=== PATIENT | female | born 1970 | race Caucasian/White ===

== ENCOUNTER 2019-02-17 14:33 | Outpatient (CLI) | payer BC ==
--- NOTE | 2019-03-03 15:29 | MMO ---
Bilateral MAMMO Bilat Screen [facility]. CLINICAL HISTORY: Patient is 48 years old and is seen for screening. The patient has the following family history of breast cancer: mother. The patient has a history of cervical cancer at age 27. VIEWS: The views performed were: bilateral craniocaudal with tomosynthesis and bilateral mediolateral oblique with tomosynthesis. FILMS COMPARED: The present examination has been compared to prior imaging studies performed at [facility] on 12/22/2015, 01/27/2017 and 02/09/2018. MAMMOGRAM FINDINGS: There are scattered fibroglandular densities. There is a new mass measuring 8 millimeters with circumscribed margins seen in the outer region of the right breast. In the left breast, there are no suspicious masses, calcifications or areas of architectural distortion. IMPRESSION: NEW MASS IN THE RIGHT BREAST REQUIRES ADDITIONAL EVALUATION. AN ULTRASOUND EXAM IS RECOMMENDED. THE RESULTS OF THIS EXAM WERE SENT TO THE PATIENT. ACR BI-RADS Category 0 - Incomplete: Need additional imaging evaluation. [facility] will notify the patient of the need for additional imaging services. MAMMOGRAPHY NOTE: 1. A negative mammogram report should not delay a biopsy if a dominant of clinically suspicious mass is present. 2. Approximately 10% to 15% of breast cancers are not detected by mammography. 3. Adenosis and dense breasts may obscure an underlying neoplasm. Reported by: ARUNA CAMPBELL MD Electonically Signed: [id number]
== END 2019-02-17 14:34 | disposition home or self-care (01) ==
LOC: BICMAMMO 14:33
PROVIDERS: ATTEND Family Medicine
DX: Z12.31 Encounter for screening mammogram for malignant neoplasm of breast (principal); N63.10 Unspecified lump in the right breast, unspecified quadrant; Z85.3 Personal history of malignant neoplasm of breast; Z85.41 Personal history of malignant neoplasm of cervix uteri
CPT/HCPCS: 77063; 77067

== ENCOUNTER 2019-03-11 10:03 | Outpatient (CLI) | payer BC ==
--- NOTE | 2019-03-11 11:10 | ULT ---
RIGHT BREAST ULTRASOUND: HISTORY: New mass seen on screening mammography in the 8-9 o'clock position of the right breast. COMPARISON: Mammogram 02/17/2019, 02/09/2018, 01/27/2017. TECHNIQUE: Multiplanar, roberts scale, and color Doppler images were obtained in a targeted ultrasound of the right breast. FINDINGS: In the 9 o'clock position of the right breast approximately 5 cm from the nipple, there is a well-cir cumscribed anechoic cyst with a simple septation measuring 7 mm in greatest dimension. No suspicious mass or shadowing is seen. IMPRESSION: BIRADS category 2 - benign findings. Annual screening mammography is recommended. POS: VALENT[facility]N
== END 2019-03-11 10:04 | disposition home or self-care (01) ==
LOC: BICMAMMO 10:03
PROVIDERS: ATTEND Family Medicine
DX: N63.13 Unspecified lump in the right breast, lower outer quadrant (principal)

== ENCOUNTER 2020-03-03 09:06 | Outpatient (CLI) | payer BC ==
--- NOTE | 2020-03-03 09:58 | MMO ---
Bilateral MAMMO Bilat Screen [facility]. CLINICAL HISTORY: Patient is 49 years old and is seen for screening. The patient has the following family history of breast cancer: mother. The patient has a history of cervical cancer at age 27. VIEWS: The views performed were: bilateral craniocaudal with tomosynthesis and bilateral mediolateral oblique with tomosynthesis. FILMS COMPARED: The present examination has been compared to prior imaging studies performed at [facility] on 02/17/2019 and 03/11/2019, and at [facility] on 01/27/2017 and 02/09/2018. This study has been interpreted with the assistance of computer-aided detection. MAMMOGRAM FINDINGS: There are scattered fibroglandular densities. There are no suspicious masses, suspicious calcifications, or new areas of architectural distortion. IMPRESSION: THERE IS NO MAMMOGRAPHIC EVIDENCE OF MALIGNANCY. A ROUTINE FOLLOW-UP MAMMOGRAM IN 1 YEAR IS RECOMMENDED. THE RESULTS OF THIS EXAM WERE SENT TO THE PATIENT. ACR BI-RADS Category 1 - Negative MAMMOGRAPHY NOTE: 1. A negative mammogram report should not delay a biopsy if a dominant of clinically suspicious mass is present. 2. Approximately 10% to 15% of breast cancers are not detected by mammography. 3. Adenosis and dense breasts may obscure an underlying neoplasm. Reported by: ANITRA PRESLEY MD Electonically Signed: [id number]
== END 2020-03-03 09:07 | disposition home or self-care (01) ==
LOC: BICMAMMO 09:06
PROVIDERS: ATTEND Obstetrics & Gynecology
DX: Z12.31 Encounter for screening mammogram for malignant neoplasm of breast (principal); Z80.3 Family history of malignant neoplasm of breast; Z85.41 Personal history of malignant neoplasm of cervix uteri
CPT/HCPCS: 77063; 77067

== ENCOUNTER 2021-03-05 09:17 | Outpatient (CLI) | payer BC | END 2021-03-05 09:18 | disposition home or self-care (01) | LOC: BICMAMMO 09:17 | PROVIDERS: ATTEND Obstetrics & Gynecology | DX: Z12.31 Encounter for screening mammogram for malignant neoplasm of breast (principal); Z80.3 Family history of malignant neoplasm of breast; Z85.41 Personal history of malignant neoplasm of cervix uteri | CPT/HCPCS: 77063; 77067 ==

== ENCOUNTER 2022-03-06 09:16 | Outpatient (CLI) | payer BC | END 2022-03-06 09:17 | disposition home or self-care (01) | LOC: BICMAMMO 09:16 | PROVIDERS: ATTEND Obstetrics & Gynecology | DX: Z12.31 Encounter for screening mammogram for malignant neoplasm of breast (principal); Z80.3 Family history of malignant neoplasm of breast; Z85.41 Personal history of malignant neoplasm of cervix uteri | CPT/HCPCS: 77063; 77067 ==

== ENCOUNTER 2024-03-17 13:24 | Outpatient (CLI) | payer BC | END 2024-03-17 13:25 | disposition home or self-care (01) | LOC: BICMAMMO 13:24 | PROVIDERS: ATTEND Obstetrics & Gynecology | DX: Z12.31 Encounter for screening mammogram for malignant neoplasm of breast (principal); Z80.3 Family history of malignant neoplasm of breast; Z85.41 Personal history of malignant neoplasm of cervix uteri | CPT/HCPCS: 77063; 77067 ==

== ENCOUNTER 2024-04-12 06:07 | Day surgery (SDC) | payer BC ==
[2024-04-12] MEDS ORDERED: Heparin 5,000 UNITS/ML VIAL ONE (06:26)
[2024-04-12] MEDS ORDERED: Sodium Chloride 0.9% 100 ML ONE (06:26)
[2024-04-12] MEDS ORDERED: CEFAZOLIN 2 GM VIAL ONE (06:26)
[2024-04-12] MEDS ORDERED: Gentamicin 80 MG/2 ML VIAL ONE (06:48)
[2024-04-12] MEDS ORDERED: Bupivacaine 0.25% HCL 30 ML VIAL ONE (06:48)
[2024-04-12] MEDS ORDERED: Bacitracin Zinc Ointment 30 gm TUBE ONE (06:48)
[2024-04-12] MEDS ORDERED: Lidocaine 1% (PF) 30 ML VIAL ONE ×2 (06:48→06:49)
[2024-04-12] MEDS ORDERED: EPINEPHrine 1 MG/ML VIAL ONE (06:48)
[2024-04-12] MEDS ORDERED: Vancomycin 1 GM VIAL ONE (06:55)
[2024-04-12] MEDS ORDERED: Midazolam HCl 2 mg/2 ml Vial ONE (07:11)
[2024-04-12] MEDS ORDERED: Promethazine HCl 25 MG/ML VIAL ONE (07:20)
[2024-04-12] MEDS ORDERED: Lidocaine 2% PF 5 ML VIAL ONE (07:22)
[2024-04-12] MEDS ORDERED: PROPOFOL 20 ML ONE ×2 (07:22→08:07)
[2024-04-12] MEDS ORDERED: PHENYLEPHRINE-NS 100 MCG/ML 10 ML SYRINGE ONE (07:57)
[2024-04-12] MEDS ORDERED: Ketorolac Tromethamine 30 MG (1 mL) VIAL ONE (08:16)
[2024-04-12] MEDS ORDERED: Ondansetron PF 4 MG/2 ML Vial ONE (08:16)
[2024-04-12] MEDS ORDERED: Dexamethasone 20 MG/5 ML VIAL ONE (08:16)
[2024-04-12] MEDS ORDERED: Tranexamic Acid 1,000 MG/10 ML VIAL ONE (09:00)
[2024-04-12] MEDS ORDERED: ePHEDrine Sulfate 50 MG/10 ML VIAL ONE (10:47)
[2024-04-12] MEDS ORDERED: HYDROmorphone 2 MG/ML VIAL ONE (11:26)
[2024-04-12] MEDS ORDERED: HYDROcodone/Acetaminophen 5/325 mg Tablet ONE (13:00)
[2024-04-12] MEDS ORDERED: Morphine 2 MG/ML VIAL ONE (13:00)
== END 2024-04-12 15:45 | disposition home or self-care (01) ==
LOC: SDC 06:07
PROVIDERS: ATTEND Plastic Surgery
PROC: 0HBV0ZZ Excision of Bilateral Breast, Open Approach (ICD-10-PCS; principal; 2024-04-12)
DX: N62 Hypertrophy of breast (principal); N64.9 Disorder of breast, unspecified; I10 Essential (primary) hypertension; Z79.899 Other long term (current) drug therapy; Z90.710 Acquired absence of both cervix and uterus; Z98.890 Other specified postprocedural states
CPT/HCPCS: 88305; J0171; J0665; J1100; J1170; J1580; J1644; J1885; J2001; J2250; J2272; J2405; J2550; J2704; J3370